=== PATIENT | female | born 1980 | race Caucasian/White ===

== ENCOUNTER 2021-11-27 16:02 | Outpatient (CLI) | payer OTHER, SELFPAY ==
[2021-11-27 21:30] LABS: Iron* 34 ug/dL (37-170)
[2021-11-27 21:40] LABS: Percent Iron Saturation 11 % (20-50); Total Iron Binding Capacity 313 ug/dL (265-497)
[2021-11-27 21:46] LABS: Vitamin D 25 Hydroxy* 24 ng/mL (30-80)
[2021-11-27 22:18] LABS: Vitamin B12* 360 pg/mL (243-894)
== END 2021-11-27 16:03 | disposition home or self-care (01) ==
PROVIDERS: PCP Physician Assistant Medical; Visit Provider Physician Assistant Medical
DX: R53.83 Other fatigue (principal); G25.81 Restless legs syndrome; F41.9 Anxiety disorder, unspecified
CPT/HCPCS: 82306; 82607; 82652; 83540; 83550

== ENCOUNTER 2021-12-18 13:24 | Outpatient (CLI) | payer OTHER, SELFPAY | END 2021-12-18 13:25 | disposition home or self-care (01) | LOC: LKVREF 12-20 10:20 | PROVIDERS: PCP Physician Assistant Medical; Visit Provider Nurse Practitioner Family | DX: R30.0 Dysuria (principal); N39.0 Urinary tract infection, site not specified | CPT/HCPCS: 87086; 87186 ==

== ENCOUNTER 2022-09-17 08:04 | Outpatient (CLI) | payer OTHER, SELFPAY | END 2022-09-17 08:05 | disposition home or self-care (01) | PROVIDERS: PCP Physician Assistant Medical; Visit Provider Physician Assistant Medical | DX: Z00.00 Encounter for general adult medical examination without abnormal findings (principal); R53.83 Other fatigue; E61.1 Iron deficiency; E03.9 Hypothyroidism, unspecified; R30.9 Painful micturition, unspecified; E55.9 Vitamin D deficiency, unspecified; R73.09 Other abnormal glucose; R79.89 Other specified abnormal findings of blood chemistry; F41.9 Anxiety disorder, unspecified | CPT/HCPCS: 80053; 80061; 82306; 83540; 84443; 86703; 86803 ==

== ENCOUNTER 2022-12-11 15:37 | Outpatient (CLI) | payer OTHER, SELFPAY ==
--- NOTE | 2022-12-11 15:40 | CRLHL7_ITS ---
For Patients: As a result of the Century Cures Act, medical imaging exams and procedure reports are released immediately into your electronic medical record. You may view this report before your referring provider. If you have questions, please contact your health care provider. BILATERAL SCREENING MAMMOGRAM WITH COMPUTER-AIDED DETECTION AND TOMOSYNTHESIS TECHNIQUE: CC and MLO views were obtained. These mammographic images have been obtained using full-field digital technique. These mammographic images were interpreted with the benefit of computer-aided detection. Breast Tomosynthesis was used in this interpretation. COMPARISON FILM: 03/13/20, 02/18/10. FINDINGS: The breasts are heterogeneously dense, which may obscure small masses IMPRESSION: There is no radiographic evidence for malignancy. ASSESSMENT: BI-RADS Category 1: Negative RECOMMENDATION: Routine screening mammogram in 1 year. A lay language report of this examination will be provided to the patient. Vitaliy Calvo M.D. Diagnostic Radiologist [email or web address] RADHA/Dictated by: Vitaliy Calvo MD @ 12/12/2022 11:56:00 AM (Electronically Signed)
== END 2022-12-11 15:38 | disposition home or self-care (01) ==
LOC: MAMMO 15:38
PROVIDERS: PCP Physician Assistant Medical; Visit Provider Physician Assistant Medical
DX: Z12.31 Encounter for screening mammogram for malignant neoplasm of breast (principal); R92.2 Inconclusive mammogram
CPT/HCPCS: 77063; 77067

== ENCOUNTER 2023-02-17 19:18 | Outpatient (CLI) | payer OTHER, SELFPAY ==
--- NOTE | 2023-02-24 12:36 | W.PM.SLEEP ---
Sleep Study Details Details Interpreting Provider: Stefanie Date of Sleep Study: 02/17/23 Sleep Study Details: STUDY TYPE:? Home unattended ? BMI:? 43.4 ORDERING PROVIDER:Mimi Davidson INDICATION:? Concerns about sleep apnea ? SLEEP SUMMARY:? 497 minutes monitored RESPIRATORY SUMMARY:? AHI 2.2, supine 5.3, left lateral 4.2, right lateral 0.6 PERIODIC LIMB MOVEMENTS OF SLEEP:? Not recorded during home study CARDIAC:? Range 56-100, mean 71.2 IMPRESSION:? This sleep study is within normal limits. The patient should be question is as to whether she actually slept during the test. If sleep disorder is strongly suspected recommend an in-lab study. RECOMMENDATION: See impression
== END 2023-02-17 19:19 | disposition home or self-care (01) ==
LOC: SLEEP 19:18
PROVIDERS: PCP Physician Assistant Medical; Visit Provider Physician Assistant Medical
DX: R53.83 Other fatigue (principal)
CPT/HCPCS: 95806